=== PATIENT | male | born 1965 | race Caucasian/White ===

== ENCOUNTER 2017-04-19 18:22 | Emergency (ER) | payer OTHER ==
[~2017-04-19 18:22] MED LIST: BENTYL10 MG PO; EYE DROP15 ML OP; FLEXERIL10 MG PO; METHADONE PO; PHENERGAN12.5 M1 PO; PREDNISONE PO
[2017-04-19] MEDS ORDERED: ZOLOFT (18:26)
== END 2017-04-19 19:12 | disposition left against medical advice (07) ==
LOC: SED 18:22
DX: Z53.21 Procedure and treatment not carried out due to patient leaving prior to being seen by health care provider (principal)